=== PATIENT | female | born 1950 | race African-American/Black ===

== ENCOUNTER 2019-04-02 19:12 | Emergency (ER) | payer MEDICARE, MEDICAID ==
[~2019-04-02] VITALS: Ht 139.7 cm; Wt 68.0 kg
[2019-04-02] MEDS ORDERED: IBUPROFEN 600MG TABLET PO STA (21:34)
[2019-04-02] MEDS ORDERED: ACETAMINOPHEN WITH CODEINE 300/30MG TABLET PO STA (21:34)
[2019-04-02] MEDS ORDERED: IBUPROFEN 100MG/5ML UDC PO ONE (22:15)
[2019-04-02 23:33] VITALS: BP 135/50
== END 2019-04-02 23:38 | disposition home or self-care (01) ==
LOC: ER 19:12
DX: M79.674 Pain in right toe(s) (principal)
CPT/HCPCS: 36415; 73630; 84550; 99284

== ENCOUNTER 2020-08-12 00:08 | Emergency (ER) | payer MEDICARE, MEDICAID ==
[~2020-08-12] VITALS: Ht 139.7 cm; Wt 75.0 kg
[2020-08-12 00:16] VITALS: BP 148/92
[2020-08-12] MEDS ORDERED: TETRACAINE 0.5% OPHTH DROPS 4ML LEFTEYE ONE (01:00)
[2020-08-12] MEDS ORDERED: ACETAMINOPHEN 325MG TABLET PO ONE (01:00)
[2020-08-12] MEDS ORDERED: FLUORESCEIN SODIUM 1MG/STRIP LEFTEYE ONE (01:00)
== END 2020-08-12 02:26 | disposition home or self-care (01) ==
LOC: ER 00:08
DX: S05.02XA Injury of conjunctiva and corneal abrasion without foreign body, left eye, initial encounter (principal); H10.32 Unspecified acute conjunctivitis, left eye; M19.90 Unspecified osteoarthritis, unspecified site; J40 Bronchitis, not specified as acute or chronic; X58.XXXA Exposure to other specified factors, initial encounter; Y93.9 Activity, unspecified; Z96.649 Presence of unspecified artificial hip joint; Z96.659 Presence of unspecified artificial knee joint
CPT/HCPCS: 99283

== ENCOUNTER 2021-08-14 15:23 | Emergency (ER) | payer MEDICARE, MEDICAID ==
[~2021-08-14] VITALS: Ht 139.7 cm; Wt 68.0 kg
[2021-08-14 15:37] VITALS: BP 129/86
[2021-08-14] MEDS ORDERED: METHYLPREDNISOLONE SOD SUCC 125 MG/2 ML VIAL IV STA (15:40)
[2021-08-14] MEDS ORDERED: HYDR-4005 PO (15:40)
[2021-08-14] MEDS ORDERED: TOLT2TAB18 PO (15:40)
[2021-08-14] MEDS ORDERED: IPRATROPIUM BROMIDE (0.02%) 0.5MG/2.5ML NEB HHN STA (15:40)
[2021-08-14] MEDS ORDERED: FLUT16SP15 (15:40)
[2021-08-14] MEDS ORDERED: ERGO1250 PO (15:40)
[2021-08-14] MEDS ORDERED: ALBUTEROL (0.083%) 2.5MG/3ML NEB HHN SCH (16:00)
[2021-08-14 17:42] LABS: CHLORIDE 107 mEq/L (98-107)
[2021-08-14 17:46] LABS: BASOPHILS % 1.2 % (0.0-2.0); EOSINOPHILS % 1.6 % (0.0-5.0); HEMATOCRIT. 43.3 % (36.0-48.0); HEMOGLOBIN. 13.5 g/dL (12.0-16.0); LYMPHOCYTES % 24.7 % (20.0-50.0); MEAN CORPUSCULAR HEMOGLOBIN 25.4 pg (28.0-32.0); MEAN CORPUSCULAR VOLUME 81.5 fL (81.0-99.0); MEAN PLATELET VOLUME 8.6 fl (7.4-10.4); MONOCYTES % 8.8 % (2.0-8.0); NEUTROPHILS % 63.7 % (40.0-76.0); PLATELET 323 x1000/uL (130-400); RED BLOOD CELL COUNT 5.31 mill/uL (4.2-5.4); RED CELL DISTRIBUTION WIDTH 16.1 % (11.6-14.6)
== END 2021-08-14 18:58 | disposition left against medical advice (07) ==
LOC: ER 15:23
DX: R06.02 Shortness of breath (principal); R05.9 Cough, unspecified
CPT/HCPCS: 36415; 71045; 80053; 83880; 84484; 85025; 93005; 99285

== ENCOUNTER 2024-02-15 13:58 | Emergency (ER) | payer MEDICARE, MEDICAID ==
[~2024-02-15] VITALS: Ht 139.7 cm; Wt 69.0 kg
[~2024-02-15 13:58] MED LIST: ERGO1250 PO; FLUT16SP15; HYDR-4005 PO; TOLT2TAB18 PO
[2024-02-15 14:41] LABS: BASOPHILS % 1.1 % (0.0-2.0); DIFFERENTIAL COMMENT 0; EOSINOPHILS % 1.3 % (0.0-5.0); HEMATOCRIT. 40.2 % (36.0-48.0); HEMOGLOBIN. 13.4 g/dL (12.0-16.0); LYMPHOCYTES % 25.5 % (20.0-50.0); MEAN CORPUSCULAR HEMOGLOBIN 26.5 pg (28.0-32.0); MEAN CORPUSCULAR HGB CONC 33.5 g/dL (31.0-37.0); MEAN CORPUSCULAR VOLUME 79.3 fL (81.0-99.0); MEAN PLATELET VOLUME 8.5 fl (7.4-10.4); NEUTROPHILS % 64.1 % (40.0-76.0); PLATELET 303 x1000/uL (130-400); RED BLOOD CELL COUNT 5.07 mill/uL (4.2-5.4); RED CELL DISTRIBUTION WIDTH 17.1 % (11.6-14.6); WHITE BLOOD COUNT 10.2 x1000/uL (4.5-11.0)
[2024-02-15 14:48] LABS: CHLORIDE 105 mEq/L (98-107); POTASSIUM 4.2 mEq/L (3.5-5.1); SODIUM 138 mEq/L (136-145)
[2024-02-15 14:49] LABS: CARBON DIOXIDE 26 mEq/L (21-32)
[2024-02-15 14:54] LABS: CREATININE 0.8 mg/dL (0.6-1.0); GLUCOSE 94 mg/dL (70-105); UREA NITROGEN BLOOD 7 mg/dL (9-23)
[2024-02-15] MEDS: PREDNISONE 20MG TABLET PO STA (15:01)
[2024-02-15 15:26] VITALS: PULSE 69; RESP 20; O2SAT 99
[2024-02-15] MEDS: IPRATROPIUM BROMIDE (0.02%) 0.5MG/2.5ML NEB HHN STA (15:26)
[2024-02-15] MEDS: ALBUTEROL (0.083%) 2.5MG/3ML NEB HHN STA (15:26)
[2024-02-15] MEDS ORDERED: P20 MT (17:17)
[2024-02-15] MEDS ORDERED: AMOX1TAB16 MT (17:17)
[2024-02-15] MEDS ORDERED: BECL10.62 INH (17:17)
[2024-02-15] MEDS ORDERED: ALBU6.7H15 INH (17:17)
[2024-02-15 17:20] VITALS: BP 149/88; PULSE 75; RESP 17; TEMP 97.9
== END 2024-02-15 18:04 | disposition home or self-care (01) ==
LOC: ER 13:58
DX: J20.9 Acute bronchitis, unspecified (principal); I10 Essential (primary) hypertension; Z96.653 Presence of artificial knee joint, bilateral; Z98.890 Other specified postprocedural states
CPT/HCPCS: 99285; 71045; 80048; 83880; 85025; 36415; 93005; 94644; J7512

== ENCOUNTER 2024-12-18 10:29 | Emergency (ER) | payer MEDICARE, OTHER ==
[~2024-12-18] VITALS: Ht 152.4 cm; Wt 77.0 kg
[~2024-12-18 10:29] MED LIST changes: +ALBU6.7H15 INH; +AMOX1TAB16 MT; +BECL10.62 INH; +P20 MT
[2024-12-18] MEDS: METHYLPREDNISOLONE SOD SUCC 125MG/2ML (ACT-O-VIAL) IV STA (11:15)
[2024-12-18] MEDS: MAGNESIUM 2 G PREMIX 50 ML IV ONE (11:15)
[2024-12-18 11:30] LABS: BASOPHILS % 0.5 % (0.0-2.0); EOSINOPHILS % 2.4 % (0.0-5.0); HEMATOCRIT. 39.9 % (36.0-48.0); HEMOGLOBIN. 12.4 g/dL (12.0-16.0); LYMPHOCYTES % 29.8 % (20.0-50.0); MEAN CORPUSCULAR HEMOGLOBIN 25.1 pg (28.0-32.0); MEAN CORPUSCULAR HGB CONC 31.1 g/dL (31.0-37.0); MEAN CORPUSCULAR VOLUME 80.8 fL (81.0-99.0); MEAN PLATELET VOLUME 8.6 fl (7.4-10.4); MONOCYTES % 8.7 % (2.0-8.0); NEUTROPHILS % 58.6 % (40.0-76.0); PLATELET 334 x1000/uL (130-400); RED BLOOD CELL COUNT 4.94 mill/uL (4.2-5.4); RED CELL DISTRIBUTION WIDTH 16.8 % (11.6-14.6); WHITE BLOOD COUNT 9.7 x1000/uL (4.5-11.0)
[2024-12-18 11:33] LABS: CHLORIDE 103 mEq/L (98-107); POTASSIUM 4.1 mEq/L (3.5-5.1); SODIUM 140 mEq/L (136-145)
[2024-12-18 11:34] VITALS: PULSE 71; RESP 20; O2SAT 96
[2024-12-18 11:34] LABS: CALCIUM 9.5 mg/dL (8.7-10.4); CARBON DIOXIDE 26 mEq/L (21-32)
[2024-12-18] MEDS: IPRATROPIUM BROMIDE (0.02%) 0.5MG/2.5ML NEB HHN STA (11:34)
[2024-12-18] MEDS: ALBUTEROL (0.083%) 2.5MG/3ML NEB HHN SCH (11:34)
[2024-12-18 11:39] LABS: CREATININE 0.8 mg/dL (0.6-1.0); GLUCOSE 87 mg/dL (70-105); UREA NITROGEN BLOOD 11 mg/dL (9-23)
[2024-12-18 11:44] LABS: TROPONIN I HIGH SENSITIVITY < 4 ng/L (3.0-34)
[2024-12-18 11:56] LABS: PARTIAL THROMBOPLASTIN TIME 27.1 sec (23.4-31.0); PROTHROMBIN TIME 10.6 sec (9.6-11.0)
[2024-12-18 13:18] LABS: BG BASE EXCESS -2.1 mmol/L (-2.0-3.0); BG CARBOXYHEMOGLOBIN 0.7 % (0.5-1.5); BG DEOXYHEMOGLOBIN 4.8 % (0.0-5.0); BG FRACTION INSPIRED OXYGEN 21; BG HCO3 ACT 23.9 mmol/L (21.0-28.0); BG METHEMOGLOBIN 0.3 % (0.5-1.5); BG OXYGEN SATURATION 95.2 % (94.0-98.0); BG OXYHEMOGLOBIN 94.2 % (94.0-98.0); BG PCO2 45.4 mmHg (32.0-45.0); BG PH 7.339 (7.350-7.450); BG PO2 77.8 mmHg (83.0-108.0); BG SAMPLE SITE RIGHT RADIAL; BG TOTAL HEMOGLOBIN 13.6 g/dL (12.0-16.0); BG VENT MODE ROOM AIR
[2024-12-18] MEDS ORDERED: FLUT16SP15 INH (13:50)
[2024-12-18] MEDS ORDERED: GUAI237L83 MT (13:50)
[2024-12-18] MEDS ORDERED: P50 MT (13:50)
[2024-12-18] MEDS ORDERED: BECL10.62 INH (13:50)
[2024-12-18 14:32] VITALS: BP 127/72; PULSE 77; RESP 18; TEMP 36.7; O2SAT 96
== END 2024-12-18 14:33 | disposition home or self-care (01) ==
LOC: ER 10:29
DX: J20.8 Acute bronchitis due to other specified organisms (principal); M19.90 Unspecified osteoarthritis, unspecified site; Z79.51 Long term (current) use of inhaled steroids; Z96.649 Presence of unspecified artificial hip joint; Z96.659 Presence of unspecified artificial knee joint
CPT/HCPCS: 99285; 96365; 71045; 96375; 80048; 83880; 85025; 85610; 85730; 84484; 36415; 82805; 82375; 93005; 94644; 36600; J2919; J3475; 94070; 94640; A4606